=== PATIENT | male | born 1980 ===

== ENCOUNTER 2022-10-27 11:58 | Day surgery (SDC) | payer OTHER, SELFPAY ==
[2022-10-26 07:31] VITALS: BMI 33.2
[2022-10-27] VITALS (8 sets, daily range): BP systolic 113–134; BP diastolic 41–84; PULSE 78–94; RESP 10–17; TEMP 36–36.3; O2SAT 94–98; BMI 33.2
[2022-10-27] MEDS: ACETAMINOPHEN 325 MG TABLET 975 MG PO (12:52)
[2022-10-27] MEDS: LACTATED RINGERS 1,000 ML 100 ML IV ×2 (13:12→14:53)
--- NOTE | 2022-10-27 13:25 | PM.PREOP ---
Pre-operative Note Interval Note History & Physical reviewed/Exam performed by Physician: Yes Changes to H&P: No
[2022-10-27] MEDS: CEFAZOLIN 2 GM/100 ML PREMIX 100 ML IV (13:59)
--- NOTE | 2022-10-27 14:10 | SUR.OPER ---
Supine on padded OR bed, head on pillow, arms padded and tucked at sides, legs uncrossed, safety belt at thigh, tape over blanket over lower legs .
[2022-10-27] MEDS: BUPIVACAINE 0.25% (PF) VIAL 30 ML INJ (14:23)
--- NOTE | 2022-10-27 15:43 | PM.OP.1 ---
Operative Date/Time/Diagnoses Date of procedure: 10/27/22 Time of procedure: 15:44 Pre-op diagnosis: Umbilical hernia, bilateral inguinal hernia Post-op diagnosis: same Procedure & Clinicians Procedure: Laparoscopic transabdominal preperitoneal repair bilateral inguinal hernia Umbilical hernia repair Same procedure as scheduled: Yes Indications: Symptomatic bilateral inguinal hernia and a hernia Surgeon: Juan Jose Bhatia Interdisciplinary Professor: Fredi García Anesthesia Type: General Operative Notes Findings: 2 cm umbilical defect. Bilateral traumatic inguinal hernias. No indirect hernias. Specimen(s): none sent Estimated Blood Loss (mL): 50 Procedure in detail: The patient was brought to the operating room and placed supine on the table. Bilateral sequential compression devices were applied. General anesthesia was induced and they were intubated with an endotracheal tube. A bergman cath was placed in sterile fashion. They received 2 g it prior to skin incision. They were prepped and draped in sterile fashion. A time out was performed to ensure the correct patient, procedure and necessary equipment within the operating room. The skin was infiltrated with 0.25% bupivicaine. A curvilinear umbilical incision was made and we entered the abdomen through the umbilical hernia defect. A 10mm balloon port was placed and pneumoperitoneum was established at 15mm Hg. Inspection of the abdomen demonstrated no evidence of injury upon entry. Two 5 mm ports were then placed under direct visualization in the right and left lower quadrant lateral to the rectus muscle. A right and left direct hernias were observed. Starting on the left side the peritoneum 4 cm superior to the deep inguinal ring between the medial umbilical ligament and the anterior superior iliac spine was incised. The medial preperitoneal dissection was carried out into the space of Retzius bluntly, the bladder was swept inferiorly, the pubis and Reji's ligament were identified. Next attention was turned towards the lateral aspect of the peritoneal flap. The preperitoneal fat with the testicular vessels was carefully dissected off the inferior peritoneal flap. The cord was carefully inspected there was was no evidence of a indirect hernia or cord lipoma.. The attachements to the direct hernia sac were divided and the direct defect was reduced. A large Bard 3D Max mesh was then placed into the abdomen and positioned such that the myopectineal orifice was completely covered with good overlap on all sides.. Next the right side was addressed. The peritoneum 4 cm superior to the deep inguinal ring between the medial umbilical ligament and the anterior superior iliac spine was incised. The medial preperitoneal dissection was carried out into the space of Retzius bluntly, the bladder was swept inferiorly, the pubis and Reji's ligament were identified. Next attention was turned towards the lateral aspect of the peritoneal flap. The preperitoneal fat with the testicular vessels was carefully dissected off the inferior peritoneal flap. The cord was carefully inspected there was no evidence of indirect defect or cord lipoma. The attachements to the direct hernia sac were divided and the direct defect was reduced. A large Bard 3D Max mesh was then placed into the abdomen and positioned such that the myopectineal orifice was completely covered with good overlap on all sides. The peritoneal flaps were then repositioned back to there original position and a running V lock suture was used to close the peritoneum such that no bowel could herniate into the preperitoneal space. The 5mm trocars were removed under direct visualization and pneumoperitoneum was deflated through the umbilical trocar, The fascia defect at the umbilicus was approximately 2 cm therefore we placed a 4 cm Bard Ventralex mesh into the defect. The anti-adhesive surface was placed down toward the bowel and mesh was secured to the adjacent fascia using interrupted 0 Ethibond suture. Subcutaneous tissue was then reapproximated using Vicryl suture and skin closed with 4-0 Monocyl followed by Dermabond. The sponge and instrument count at the end of the case was correct. Both testicles were entirely within the scrotum at the end of the case. The patient emerged from anesthsia was extubated and transferred to recovery in stable condition. Complications: none Post-operative Condition: stable Disposition: same day surgery
[2022-10-27] MEDS: OXYCODONE IR 5 MG TABLET PO (16:18)
== END 2022-10-27 17:00 | disposition home or self-care (01) ==
PROVIDERS: Referring Provider Surgery; Visit Provider Surgery
PROC: 0YQ64ZZ Repair Left Inguinal Region, Percutaneous Endoscopic Approach (ICD-10-PCS; CPT 49650; principal; 2022-10-27 13:45)
PROC: 0WQF4ZZ Repair Abdominal Wall, Percutaneous Endoscopic Approach (ICD-10-PCS; CPT 49650; 2022-10-27 13:45)
DX: K42.9 Umbilical hernia without obstruction or gangrene (principal); K40.20 Bilateral inguinal hernia, without obstruction or gangrene, not specified as recurrent
CPT/HCPCS: 49650; J0690; J1100; J2250; J2405; J2704; J3010